=== PATIENT | male | born 1930 | race Caucasian/White ===

== ENCOUNTER 2017-08-29 12:18 | Emergency (ER) | payer OTHER ==
[~2017-08-29] VITALS: Ht 185.4 cm; Wt 83.9 kg
[~2017-08-29 12:18] MED LIST: COUMADIN5 MG PO; COUMADIN7.5 MG PO; COZAAR25 MG PO; LOPRESSOR25 MG PO; NORCO 5/3251 TABLET PO; PROCARDIA XL60 MG PO; ST. JOSEPH ASPI81 MG PO; ZOCOR40 MG PO
[2017-08-29 13:38] LABS: HEMATOCRIT 37.4 % (38.0-50.0); MCH 28.5 PG (29.0-34.0); MCHC 31.8 G/DL (30.0-36.0); MCV 89.5 FL (86-99); MEAN PLAT.VOLUME 10.1 uM^3 (9.0-12.4); PLATELET COUNT 238 K/uL (156-360); RBC DIS.WIDTH-CV 14.3 % (11.8-14.6); RBC DIS.WIDTH-SD 46.8 % (39-53); RED BLOOD COUNT 4.18 M/uL (4.00-5.50); WHITE BLOOD COUNT 4.6 K/uL (4.1-10.2)
[2017-08-29 13:47] LABS: CHLORIDE 106 mEq/L (99-109); POTASSIUM 3.9 mEq/L (3.7-5.4); SODIUM 141 mEq/L (136-147)
[2017-08-29 13:48] LABS: GLUCOSE 92 mg/dL (70-99)
[2017-08-29 13:50] LABS: ANION GAP 12 MEQ/L (2-14)
[2017-08-29 13:52] LABS: GFR ESTIMATE (CALCULATED) 34 mL/min/
[2017-08-29 13:53] LABS: UREA NITROGEN (BUN) 40 mg/dL (9-23)
[2017-08-29 14:03] LABS: INTER. NORMALIZED RATIO 1.1; PROTHROMBIN TIME 12.3 SEC (10.2-12.9)
[2017-08-29 14:06] LABS: PTT 31.4 SEC (25-37)
[2017-08-29] MEDS ORDERED: ULTRACET1 TABLET PO (15:09)
[2017-08-29 15:32] VITALS: BP 159/96
== END 2017-08-29 15:33 | disposition home or self-care (01) ==
LOC: EME 12:18
PROVIDERS: Physician Assistant Medical
DX: M25.471 Effusion, right ankle (principal); M79.89 Other specified soft tissue disorders; M71.21 Synovial cyst of popliteal space [Baker], right knee; I10 Essential (primary) hypertension; E78.5 Hyperlipidemia, unspecified; Z79.82 Long term (current) use of aspirin
CPT/HCPCS: 73610; 73630; 80048; 85027; 85610; 85730; 93971; 99281; 99284

== ENCOUNTER 2017-11-23 01:14 | Emergency (ER) | payer OTHER ==
[~2017-11-23] VITALS: Ht 185.4 cm; Wt 83.9 kg
[~2017-11-23 01:14] MED LIST changes: +ULTRACET1 TABLET PO
[2017-11-23 02:26] LABS: EOSINOPHIL (%) 4.9 % (0-5); EOSINOPHIL COUNT 0.3 K/uL (0-0.3); HEMATOCRIT 36.6 % (38.0-50.0); IMMATURE GRANULOCYTE (%) 0.4 % (0.0-0.7); INSTRUMENT ABS NEUTROPHIL CT 3.3 K/uL; MCH 28.6 PG (29.0-34.0); MCV 89.5 FL (86-99); MEAN PLAT.VOLUME 9.3 uM^3 (9.0-12.4); MONOCYTE (%) 9.5 % (3-12); MONOCYTE COUNT 0.5 K/uL (0-0.8); NEUTROPHIL (%) 65.2 % (45-76); NEUTROPHIL COUNT 3.3 K/uL (1.8-6.4); PLATELET COUNT 266 K/uL (156-360); RBC DIS.WIDTH-CV 13.8 % (11.8-14.6); RBC DIS.WIDTH-SD 45.1 % (39-53); RED BLOOD COUNT 4.09 M/uL (4.00-5.50); WHITE BLOOD COUNT 5.1 K/uL (4.1-10.2)
[2017-11-23 02:37] LABS: CHLORIDE 106 mEq/L (99-109); POTASSIUM 4.1 mEq/L (3.7-5.4); SODIUM 138 mEq/L (136-147)
[2017-11-23 02:40] LABS: GLUCOSE 103 mg/dL (70-99)
[2017-11-23 02:41] LABS: ANION GAP 9 MEQ/L (2-14); TOTAL BILIRUBIN 0.6 mg/dL (0.0-1.0)
[2017-11-23 02:43] LABS: ALKALINE PHOSPHATASE 84 IU/L (3-129); GFR ESTIMATE (CALCULATED) 44 mL/min/ (58.99-99999)
[2017-11-23 02:44] LABS: UREA NITROGEN (BUN) 37 mg/dL (9-23)
[2017-11-23 04:00] VITALS: BP 175/95
== END 2017-11-23 04:00 | disposition home or self-care (01) ==
LOC: EME 01:14
PROVIDERS: Emergency Medicine
DX: S16.1XXA Strain of muscle, fascia and tendon at neck level, initial encounter (principal); X50.0XXA Overexertion from strenuous movement or load, initial encounter; I10 Essential (primary) hypertension; E78.5 Hyperlipidemia, unspecified; Z87.891 Personal history of nicotine dependence; Z79.82 Long term (current) use of aspirin
CPT/HCPCS: 70491; 80053; 85025; 99281; 99283; J7030

== ENCOUNTER 2018-01-21 12:48 | Inpatient (IN) | payer OTHER ==
[~2018-01-21] VITALS: Ht 188 cm; Wt 83.2 kg
[2018-01-21 13:36] LABS: BASOPHIL (%) 0.2 % (0-1); EOSINOPHIL (%) 0.8 % (0-5); EOSINOPHIL COUNT 0.1 K/uL (0-0.3); HEMATOCRIT 39.2 % (38.0-50.0); HEMOGLOBIN 12.3 G/DL (12.5-16.6); IMMATURE GRANULOCYTE (%) 0.5 % (0.0-0.7); LYMPHOCYTE (%) 8.9 % (15-42); LYMPHOCYTE COUNT 0.5 K/uL (1.0-2.8); MCH 28.7 PG (29.0-34.0); MCHC 31.4 G/DL (30.0-36.0); MCV 91.4 FL (86-99); MONOCYTE (%) 5.6 % (3-12); MONOCYTE COUNT 0.3 K/uL (0-0.8); NEUTROPHIL COUNT 5.1 K/uL (1.8-6.4); PLATELET COUNT 286 K/uL (156-360); RBC DIS.WIDTH-CV 15.1 % (11.8-14.6); RBC DIS.WIDTH-SD 49.7 % (39-53); RED BLOOD COUNT 4.29 M/uL (4.00-5.50); WHITE BLOOD COUNT 6.1 K/uL (4.1-10.2)
[2018-01-21 13:42] LABS: INTER. NORMALIZED RATIO 1.1
[2018-01-21 13:45] LABS: PTT 28.1 SEC (25-37)
[2018-01-21 13:46] LABS: CHLORIDE 107 mEq/L (99-109); POTASSIUM 4.1 mEq/L (3.7-5.4); SODIUM 140 mEq/L (136-147)
[2018-01-21 13:48] LABS: GLUCOSE 120 mg/dL (70-99)
[2018-01-21 13:51] LABS: CREATININE 1.6 mg/dL (0.6-1.3); GFR ESTIMATE (CALCULATED) 44 mL/min/ (58.99-99999)
[2018-01-21 13:52] LABS: UREA NITROGEN (BUN) 31 mg/dL (9-23)
[2018-01-21 13:58] LABS: TROP-I INTERPRETATION NEGATIVE; TROPONIN-I 0.03 ng/mL (0.0-0.30)
[2018-01-21 14:43] LABS: THYROTROPIN (TSH) 3.1 MIU/L (0.4-5.5)
[2018-01-21] MEDS ORDERED: VITAMIN D31000 UNIT PO (15:32)
[2018-01-21] MEDS ORDERED: FINASTERIDE5 MG PO (15:33)
[2018-01-21 18:03] VITALS: BP 135/87
[2018-01-21 20:00] VITALS: BP 136/71
[2018-01-22] VITALS (8 sets, daily range): BP systolic 119–180; BP diastolic 7–109
[2018-01-23 00:23] VITALS: BP 170/100
[2018-01-23 02:40] VITALS: BP 154/82
[2018-01-23 07:29] VITALS: BP 155/84
[2018-01-23 11:30] VITALS: BP 135/75
[2018-01-23 15:49] VITALS: BP 124/98
[2018-01-23 18:55] VITALS: BP 109/66
[2018-01-24 01:30] VITALS: BP 131/72
[2018-01-24 04:37] VITALS: BP 144/98
[2018-01-24 07:11] VITALS: BP 141/88
[2018-01-24 12:25] VITALS: BP 167/77
[2018-01-24] MEDS ORDERED: LISINOPRIL2.5 MG PO (13:45)
[2018-01-24] MEDS ORDERED: LOPRESSOR50 MG PO (13:45)
[2018-01-24] MEDS ORDERED: CARDIZEM CD180 MG PO (13:45)
[2018-01-24] MEDS ORDERED: FUROSEMIDE20 MG PO (13:45)
[2018-01-24] MEDS ORDERED: ELIQUIS2.5 MG PO (13:45)
== END 2018-01-24 15:00 | disposition home or self-care (01) | DRG 309 ==
LOC: EME 12:48 → 4EAST 15:20 → EDOF 15:20 → ENRESERV 15:38 → 4EAST 17:44 → ENPENDDIS 01-24 → 4EAST 01-24 15:00
PROVIDERS: Emergency Medicine
DX: I48.91 Unspecified atrial fibrillation (principal); I12.9 Hypertensive chronic kidney disease with stage 1 through stage 4 chronic kidney disease, or unspecified chronic kidney disease; J90 Pleural effusion, not elsewhere classified; N18.3 Chronic kidney disease, stage 3 (moderate); E11.22 Type 2 diabetes mellitus with diabetic chronic kidney disease; N40.0 Benign prostatic hyperplasia without lower urinary tract symptoms; E87.70 Fluid overload, unspecified; I27.20 Pulmonary hypertension, unspecified; R60.0 Localized edema; E78.5 Hyperlipidemia, unspecified; K59.00 Constipation, unspecified; I48.92 Unspecified atrial flutter; Z79.01 Long term (current) use of anticoagulants; Z88.8 Allergy status to other drugs, medicaments and biological substances; R53.1 Weakness; M19.071 Primary osteoarthritis, right ankle and foot; M17.12 Unilateral primary osteoarthritis, left knee
CPT/HCPCS: 71045; 78582; 80048; 83880; 84443; 84484; 85025; 85379; 85610; 85730; 93005; 93306; 99281; 99285; A9540; A9567; J1650; J7050